=== PATIENT | female | born 1990 | race African-American/Black ===

== ENCOUNTER 2016-11-27 13:05 | Emergency (ER) | payer OTHER ==
[~2016-11-27] VITALS: Ht 170.2 cm; Wt 95.0 kg
[~2016-11-27 13:05] MED LIST: OXYC-360 PO; Z.0.NO CURRENT MEDS
[2016-11-27 13:07] VITALS: BP 162/87; PULSE 90; RESP 20; TEMP 98.2; O2SAT 100
[2016-11-27 14:31] LABS: AUTOMATED NEUTROPHIL # 2.6 TH/MM3 (1.8-7.7); BASOPHIL % 0.4 % (0.0-2.0); EOSINOPHIL # 0.1 TH/MM3 (0-0.4); EOSINOPHIL % 1.1 % (0.0-4.0); HEMATOCRIT 37.7 % (35.0-46.0); LYMPH % 32.7 % (9.0-44.0); LYMPHOCYTE # 1.5 TH/MM3 (1.0-4.8); MEAN CELL VOLUME 72.1 FL (80.0-100.0); MEAN CORPUSCULAR HEMOGLOBIN 22.6 PG (27.0-34.0); MEAN CORPUSCULAR HGB CONC 31.3 % (32.0-36.0); MONO % 10.2 % (0.0-8.0); NEUT % 55.6 % (16.0-70.0); PLATELET COUNT 304 TH/MM3 (150-450); RED BLOOD COUNT 5.23 MIL/MM3 (4.00-5.30); RED CELL DISTRIBUTION WIDTH 14.2 % (11.6-17.2); WHITE BLOOD COUNT 4.7 TH/MM3 (4.0-11.0)
--- NOTE | 2016-11-27 14:34 | PD ---
HPI Chief Complaint: Psychiatric Symptoms Time Seen by Provider: 14:30 Travel History International Travel<30 days: No Contact w/Intl Traveler<30days: No Traveled to known affect area: No History of Present Illness HPI 26-year-old female that presents to the ED for evaluation of psych. Patient has a chronic history of depression and anxiety. Per patient she used to be on Prozac but she lost her insurance and she has not been able to fill it for about 6 months. Per patient she's been having more stress in her life secondary to a new job and she's been feeling more depressed because of this as well as having a pilonidal cyst that needs to be surgically removed that comes and goes and causes her discomfort. Per patient she doesn't have any problems with it at this time but she is concerned about her depression and wants help with this. Patient states that sometimes she wakes up and she doesn't care if she dies. Per patient she has no history of drug abuse or alcohol abuse. Patient is very anxious and does cry when she tells he was happening. Her symptoms are moderate. She denies any actual plan. She is here voluntarily to psychiatric help. No allergies to medication. No pain at this time. No other medical problems. She takes no medications at this time. Symptoms have been worsening for the past couple months. PFSH Past Medical History Asthma: Yes Diminished Hearing: No Respiratory: Yes (ALLERGY) ?: Not LMP: IUD in place Social History Alcohol Use: No Tobacco Use: No Substance Use: No Allergies-Medications (Allergen,Severity, Reaction): Coded Allergies: No Known Allergies (Verified , 11/27/16) Reported Meds & Prescriptions Reported Meds & Active Scripts Active Percocet (Oxycodone/Acetaminophen) 5 Mg/325 Mg Tab 1-2 Tab PO Q4HPRN FOR PAIN Reported No Current Meds (Miscellaneous Medication) Misc Review of Systems General / Constitutional: No: Fever, Chills, Weight Gain, Weight Loss, Other Eyes: No: Diploplia, Blurred Vision, Photophobia, Drainage, Redness, Foreign Body Sensation, Pain, Tearing, Blind Spots, Visual changes, Blindness, Other HENT: No: Headaches, Vertigo, Lightheadedness, Sore Throat, Rhinitis, Rhinorrhea, Congestion, Nosebleed, Neck Stiffness, Neck Pain, Masses, Gingival Bleeding, Dental Difficulties, Ear Discharge, Earache, Other Cardiovascular: No: Chest Pain or Discomfort, Palpitations, Irregular Rhythm, Tachycardia, Diaphoresis, Syncope, Dyspnea on exertion, Varicosities, Edema, Cyanosis, Varicosities, Phlebitis, Claudication, Other Respiratory: No: Cough, Shortness of Breath, Wheezing, Sneezing, Orthopnea, Hemoptysis, Stridor, Night Sweats, Pleuritic Pain, Other Gastrointestinal: No: Nausea, Vomiting, Diarrhea, Abdominal Pain, Hematemesis, Hematochezia, Constipation, Changes in Bowel Habits, Indigestion, Dysphagia, Loss of Appetite, Other Genitourinary: No: Urgency, Frequency, Dysuria, Nocturia, Hematuria, Decreased Urinary Output, Oliguria, Hesitancy, Dribbling, Incontinence, Pelvic Pain, Flank Pain, Dyspareunia, Discharge, Dysmenorrhea, Menorrhagia, Metorrhagia, Vaginal Bleeding, Other Musculoskeletal: No: Myalgias, Arthralgias, Limited ROM, Weakness, Cramping, Edema, Pain, Atrophy, Other Skin: No Rash, No Itching, No Dryness, No Lumps, No Hives, No Change in Pigmentation, No Change in nails, No Alopecia, No Lesions, No Breast Lumps, No Breast Tenderness, No Breast Swelling, No Other Neurologic: No: Weakness, Dizziness, Syncope, Focal Abnormalities, Coordination Problem, Tremor, Ataxia, Headache, Change in Mentation, Slurred Speech, Paresthesia, Incontinence, Seizures, Sensory Disturbance, Other Psychiatric: Positive: Anxiety, Depression, Suicidal Ideations, No: Disorder of Thought, Mood Disorder, Substance Abuse, Homicidal Ideation, Other Endocrine: No: Heat Intolerance, Cold Intolerance, Polyuria, Polydipsia, Other Hematologic/Lymphatic: No: Easy Bruising, Lymph Node Enlargement, Other Physical Exam Narrative GENERAL: SKIN: Warm and dry. HEAD: Atraumatic. Normocephalic. EYES: Pupils equal and round. No scleral icterus. No injection or drainage. ENT: No nasal bleeding or discharge. Mucous membranes pink and moist. Tongue is midline. No uvula deviation. NECK: Trachea midline. No JVD. CARDIOVASCULAR: Regular rate and rhythm. No murmurs, S3, S4. RESPIRATORY: No accessory muscle use. Clear to auscultation. Breath sounds equal bilaterally. GASTROINTESTINAL: Abdomen soft, non-tender, nondistended. Hepatic and splenic margins not palpable. MUSCULOSKELETAL: Extremities without clubbing, cyanosis, or edema. No obvious deformities. Full range of motion of the upper and lower extremities bilaterally. 2+ pulses bilaterally. Neurovascular intact. NEUROLOGICAL: Awake and alert. No obvious cranial nerve deficits. Motor grossly within normal limits. Five out of 5 muscle strength in the arms and legs. Normal speech. PSYCHIATRIC: Anxious and depressed mood and affect; insight and judgment normal. Data Data Last Documented VS Vital Signs Date Time Temp Pulse Resp B/P Pulse Ox O2 Delivery O2 Flow Rate FiO2 11/27/16 13:07 98.2 90 20 162/87 100 Room Air Orders Diet Regular Basic (11/27/16 Lunch) Diet Regular Basic (11/27/16 Dinner) Complete Blood Count With Diff (11/27/16 13:57) Comprehensive Metabolic Panel (11/27/16 13:57) Ed Urine Pregnancytest Poc (11/27/16 13:57) Psych Screen (11/27/16 13:57) Drug Screen, Random Urine (11/27/16 13:57) Alcohol (Ethanol) (11/27/16 13:57) Salicylates (Aspirin) (11/27/16 13:57) Tylenol (Acetaminophen) (11/27/16 13:57) Labs Laboratory Tests Test 11/27/16 11/27/16 14:13 14:15 White Blood Count 4.7 TH/MM3 Red Blood Count 5.23 MIL/MM3 Hemoglobin 11.8 GM/DL Hematocrit 37.7 % Mean Corpuscular Volume 72.1 FL Mean Corpuscular Hemoglobin 22.6 PG Mean Corpuscular Hemoglobin 31.3 % Concent Red Cell Distribution Width 14.2 % Platelet Count 304 TH/MM3 Mean Platelet Volume 8.8 FL Neutrophils (%) (Auto) 55.6 % Lymphocytes (%) (Auto) 32.7 % Monocytes (%) (Auto) 10.2 % Eosinophils (%) (Auto) 1.1 % Basophils (%) (Auto) 0.4 % Neutrophils # (Auto) 2.6 TH/MM3 Lymphocytes # (Auto) 1.5 TH/MM3 Monocytes # (Auto) 0.5 TH/MM3 Eosinophils # (Auto) 0.1 TH/MM3 Basophils # (Auto) 0.0 TH/MM3 CBC Comment AUTO DIFF Sodium Level 142 MEQ/L Potassium Level 3.2 MEQ/L Chloride Level 105 MEQ/L Carbon Dioxide Level 25.9 MEQ/L Anion Gap 11 MEQ/L Blood Urea Nitrogen 8 MG/DL Creatinine 0.77 MG/DL Estimat Glomerular Filtration 109 ML/MIN Rate Random Glucose 88 MG/DL Calcium Level 8.3 MG/DL Total Bilirubin 0.3 MG/DL Aspartate Amino Transf 17 U/L (AST/SGOT) Alanine Aminotransferase 23 U/L (ALT/SGPT) Alkaline Phosphatase 83 U/L Total Protein 7.5 GM/DL Albumin 3.6 GM/DL Salicylates Level 2.2 MG/DL Ethyl Alcohol Level LESS THAN 3 MG/DL Urine Opiates Screen NEG Urine Barbiturates Screen NEG Urine Amphetamines Screen NEG Urine Benzodiazepines Screen NEG Urine Cocaine Screen NEG Urine Cannabinoids Screen POS MDM Medical Decision Making Medical Screen Exam Complete: Yes Emergency Medical Condition: Yes Medical Record Reviewed: Yes Interpretation(s) CBC & BMP Diagram 11/27/16 14:13 tox negative Differential Diagnosis Depression versus suicidal ideation versus anxiety versus adjustment disorder versus mood disorder versus bipolar disorder versus schizophrenia versus paranoid disorder versus psychosis versus substance abuse versus alcohol abuse versus alcohol induced psychosis versus homicidality addition versus cutting versus personality disorder Narrative Course 26-year-old female that presents to the ED for evaluation of psych. Patient was properly examined and was found to have signs and symptoms consistent with psychiatric illness. Patient voices no complaints at this time. She does have a history of a chronic bilateral cysts but no problems at this time with it. Labs will be drawn. Patient was medically clear. Okay to be seen by psych. Mental health screening was discussed with the patient. Diagnosis Primary Impression: Depression Qualified Code: F33.1 - Moderate episode of recurrent major depressive disorder Adonay Crooks Nov 27, 2016 14:34
[2016-11-27 14:36] LABS: HEMO FLAGS AUTO DIFF
[2016-11-27 14:40] VITALS: BP 135/68; PULSE 84; RESP 16; TEMP 99.1; O2SAT 100
[2016-11-27 14:41] LABS: AMPHETAMINE, URINE NEG (NEG); BARBITURATES, URINE NEG (NEG); COCAINE, URINE NEG (NEG)
[2016-11-27 14:51] LABS: ANION GAP 11 MEQ/L (5-15)
[2016-11-27 14:54] LABS: ALKALINE PHOSPHATASE 83 U/L (45-117); ALT (GPT) 23 U/L (10-53); AST (GOT) 17 U/L (15-37); BICARBONATE 25.9 MEQ/L (21.0-32.0); BLOOD UREA NITROGEN 8 MG/DL (7-18); CHLORIDE 105 MEQ/L (98-107); GLOMERULAR FILTRATION RATE 109 ML/MIN (>89); POTASSIUM 3.2 MEQ/L (3.5-5.1); SODIUM (NA) 142 MEQ/L (136-145); TOTAL BILIRUBIN ADULT 0.3 MG/DL (0.2-1.0)
[2016-11-27 14:59] LABS: ACETAMINOPHEN LESS THAN 2.0 MCG/ML (10.0-30.0)
[2016-11-27 15:19] LABS: PLATELET ESTIMATE SMEAR NORMAL (NORMAL); PLATELET MORPHOLOGY NORMAL (NORMAL); SCAN/DIFF AUTO DIFF CONFIRMED
[2016-11-27] MEDS ORDERED: hydrOXYzine PAMOATE 25 MG CAP PO ONE (17:15)
--- NOTE | 2016-11-27 17:36 | PD ---
History of Present Illness Chief Complaint: Psychiatric Symptoms Time Seen by Provider: 16:55 Travel History International Travel<30 Days: No Contact w/Intl Traveler<30days: No Known affected area: No Legal Status Legal Status: Voluntary History of Present Illness: History of Present Illness HPI 26-year-old, single, AA female with reported history of generalized anxiety disorder that presents to the ED on a voluntary basis for evaluation of psych. She reports that last night she went to bed feeling anxious and upon awakening began to experience symptoms of a panic attack including palpitations , shortness of breath as well as excessive worry. She reports that her symptoms at times prevent her from doing things she wants to do. States that she has been feeling increasingly anxious over the past few months with increase ion last week. Recent stressors include starting a new job 4 weeks ago. She states that she has been treated for anxiety in the past and was prescribed Prozac which she believes helped her with her symptoms for several months but she stopped the medication due to loosing her health insurance. EMR reviewed and patient has not had any previous contact with [facility] [place] [place] psychiatric department. Positive toxicology for cannabinoids which she has admitted to infrequent use. Patient is seen in J pod. Alert and oriented female that appears stated age. Maintaining hygiene and dressed in [facility]. She is engaging with appropriate eye contact. Speech is logical, goal directed and normal rate and tone. There is no pressured speech. Her thoughts are clear and organized. Denies any hallucinations, delusions or paranoia and she does not appear internally preoccupied. Mood is anxious. No suicidal or homicidal ideation, intent or plan and she talks about wanting to feel better. Concentration and attention are WNL. PFSH Past Medical History Medical History: Denies Significant Hx Asthma: Yes Anxiety: Yes Diminished Hearing: No Psychiatric: Yes (Generalized anxiety disorder) Respiratory: Yes (ALLERGY) Tetanus Vaccination: Unknown Influenza Vaccination: No ?: Unknown LMP: 10/17/16 Menopausal: No : 0 Past Surgical History Surgical History: No Previous Surgery Psychiatric History Psychiatric History Hx Psychiatric Treatment: Generalized Anxiety Disorder. Has been tretaed w Prozac History of Inpatient Treatment: No Guns or firearms in home: No Social History Single female. Lives with her sister. has a boyfriend. 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 Hx Alcohol Use: No Hx Tobacco Use: No Hx Substance Use: Yes (marijuana) Substance Use Type: Marijuana Hx of Substance Use Treatment: No Family Psychiatric History Father with depression. Sister with anxiety Allergies-Medications (Allergen,Severity, Reaction): Coded Allergies: No Known Allergies (Verified , 11/27/16) Reported Meds & Prescriptions Reported Meds & Active Scripts Active Percocet (Oxycodone/Acetaminophen) 5 Mg/325 Mg Tab 1-2 Tab PO Q4HPRN FOR PAIN Reported No Current Meds (Miscellaneous Medication) Misc Review of Systems Except as stated in HPI: all other systems reviewed are Neg Psychiatric: COMPLAINS OF: Anxiety Exam Alert: Yes [place]: Person (ox4) Mood: Anxious Affect: Other (congruent to mood) Eye Contact: Normal Memory Intact: Comment (No gross impairment) Hallucinations: Other (negative) Delusions: No Suicidal: Ideation (ddenies) Homicidal: Ideation (denies) Insight/Judgement Fair. Not impaired MDM Medical Decision Making Medical Record Reviewed: Yes Assessment/Plan 26 year old female with history of anxiety who presents to ed on a voluntary basis due to increase in level of anxiety with panic attacks. She has not had medication due to having lost her insurance and is wanting to be put back on some medication for current symptoms. I have provided psychoeducation. Will medicate with Vistaril low dose . Will monitor for results and if helpful she can be discharged with a small rx. . Will recommend [facility] as outpatient treatment.Does not meet criteria for inpatient psychiatric treatment. Orders Diet Regular Basic (11/27/16 Lunch) Diet Regular Basic (11/27/16 Dinner) Complete Blood Count With Diff (11/27/16 13:57) Comprehensive Metabolic Panel (11/27/16 13:57) Ed Urine Pregnancytest Poc (11/27/16 13:57) Psych Screen (11/27/16 13:57) Drug Screen, Random Urine (11/27/16 13:57) Alcohol (Ethanol) (11/27/16 13:57) Salicylates (Aspirin) (11/27/16 13:57) Tylenol (Acetaminophen) (11/27/16 13:57) Hydroxyzine Pamoate (Vistaril) (11/27/16 17:15) Results Vital Signs Date Time Temp Pulse Resp B/P Pulse Ox O2 Delivery O2 Flow Rate FiO2 11/27/16 14:40 99.1 84 16 135/68 100 Room Air 11/27/16 13:07 98.2 90 20 162/87 100 Room Air Laboratory Tests Test 11/27/16 11/27/16 14:13 14:15 White Blood Count 4.7 Red Blood Count 5.23 Hemoglobin 11.8 Hematocrit 37.7 Mean Corpuscular Volume 72.1 Mean Corpuscular Hemoglobin 22.6 Mean Corpuscular Hemoglobin 31.3 Concent Red Cell Distribution Width 14.2 Platelet Count 304 Mean Platelet Volume 8.8 Neutrophils (%) (Auto) 55.6 Lymphocytes (%) (Auto) 32.7 Monocytes (%) (Auto) 10.2 Eosinophils (%) (Auto) 1.1 Basophils (%) (Auto) 0.4 Neutrophils # (Auto) 2.6 Lymphocytes # (Auto) 1.5 Monocytes # (Auto) 0.5 Eosinophils # (Auto) 0.1 Basophils # (Auto) 0.0 CBC Comment AUTO DIFF Differential Comment AUTO DIFF CONFIRMED Platelet Estimate NORMAL Platelet Morphology Comment NORMAL Red Cell Morphology Comment NORMAL Sodium Level 142 Potassium Level 3.2 Chloride Level 105 Carbon Dioxide Level 25.9 Anion Gap 11 Blood Urea Nitrogen 8 Creatinine 0.77 Estimat Glomerular Filtration 109 Rate Random Glucose 88 Calcium Level 8.3 Total Bilirubin 0.3 Aspartate Amino Transf 17 (AST/SGOT) Alanine Aminotransferase 23 (ALT/SGPT) Alkaline Phosphatase 83 Total Protein 7.5 Albumin 3.6 Salicylates Level 2.2 Acetaminophen Level LESS THAN 2.0 Ethyl Alcohol Level LESS THAN 3 Urine Opiates Screen NEG Urine Barbiturates Screen NEG Urine Amphetamines Screen NEG Urine Benzodiazepines Screen NEG Urine Cocaine Screen NEG Urine Cannabinoids Screen POS Diagnosis Primary Impression: Anxiety Psychiatrically Cleared: Yes Med/ Other Pt Specific Info: Prescription(s) given Disposition: 01 DISCHARGE HOME Condition: Stable BarrettTashia Nov 27, 2016 17:36
[2016-11-27] MEDS ORDERED: VIST25CA PO (18:16)
[2016-11-27 18:30] VITALS: BP 141/74
== END 2016-11-27 19:01 | disposition home or self-care (01) ==
LOC: NEPJ 13:05
DX: F33.1 Major depressive disorder, recurrent, moderate (principal); F41.9 Anxiety disorder, unspecified; Z86.59 Personal history of other mental and behavioral disorders; Z87.09 Personal history of other diseases of the respiratory system
CPT/HCPCS: 80053; 80307; 80320; 84703; 85025; 99283; Q0177; 80329; G0480

== ENCOUNTER 2017-09-16 09:52 | Emergency (ER) | payer SELFPAY ==
[~2017-09-16 09:52] MED LIST changes: +VIST25CA PO
[2017-09-16 09:57] VITALS: BP 139/89; PULSE 99; RESP 18; TEMP 98.8; O2SAT 99
[2017-09-16] MEDS ORDERED: PROZ20CA11 PO (10:10)
--- NOTE | 2017-09-16 10:22 | PD ---
HPI Chief Complaint: Skin Problem Time Seen by Provider: 10:12 Travel History International Travel<30 days: No Contact w/Intl Traveler<30days: No Traveled to known affect area: No History of Present Illness HPI 26-year-old female presents to the department complaining of recurrent pilonidal cyst. Patient states her last cyst was 1 year ago and she is unable to control this with saline soaks and heating pads. Patient states that she doesn't have insurance and is unable to afford a general surgeon. States she has had these since she was 18 years old and has required multiple surgeries for excision. Patient denies fever or chills. Denies bowel or bladder problems. Patient has no other complaints today. Patient has a history of depression and takes Prozac. PFSH Past Medical History Asthma: Yes Anxiety: Yes Diminished Hearing: No Psychiatric: Yes (Generalized anxiety disorder) Respiratory: Yes (ALLERGY) Tetanus Vaccination: > 5 Years Influenza Vaccination: No ?: Not Menopausal: No : 0 Social History Alcohol Use: No Tobacco Use: No Substance Use: Yes (marijuana) Allergies-Medications (Allergen,Severity, Reaction): Coded Allergies: No Known Allergies (Verified Adverse Reaction, Unknown, 09/16/17) Reported Meds & Prescriptions Reported Meds & Active Scripts Active Bactrim DS (Sulfamethoxazole-Trimethoprim) 800-160 Mg Tab 1 Tab PO BID Reported Prozac (Fluoxetine HCl) 20 Mg Cap 20 Mg PO DAILY Review of Systems Except as stated in HPI: all other systems reviewed are Neg Physical Exam Narrative GENERAL: Well-nourished, well-developed patient. SKIN: Focused skin assessment warm/dry. Pilonidal area with 3 cm x 0.5 cm area of induration with slight fluctuance without erythema or extension of the abscess. No drainage. No evidence of lymphangitic Spread. No areas of erythema. HEAD: Normocephalic. Atraumatic. EYES: No scleral icterus. No injection or drainage. NECK: Supple, trachea midline. No JVD or lymphadenopathy. CARDIOVASCULAR: Regular rate and rhythm without murmurs, gallops, or rubs. RESPIRATORY: Breath sounds equal bilaterally. No accessory muscle use. GASTROINTESTINAL: Abdomen soft, non-tender, nondistended. MUSCULOSKELETAL: No cyanosis, or edema. BACK: Nontender without obvious deformity. No CVA tenderness. Data Data Last Documented VS Vital Signs Date Time Temp Pulse Resp B/P (MAP) Pulse Ox O2 Delivery O2 Flow Rate FiO2 09/16/17 11:03 97.8 77 16 122/83 (96) 99 Orders Orders Acetamin-Hydrocod 325-5 Mg (Universal 5-325 (09/16/17 10:30) Lidocaine 1% Inj (50 Ml) (Xylocaine 1% I (09/16/17 10:30) Ed Discharge Order (09/16/17 10:55) [facility] Medical Decision Making Medical Screen Exam Complete: Yes Emergency Medical Condition: Yes Differential Diagnosis Gluteal abscess, pilonidal cyst, cellulitis Narrative Course 26-year-old female presents to the department complaining of recurrent pilonidal cyst. Patient states her last cyst was 1 year ago and she is unable to control this with saline soaks and heating pads. Patient states that she doesn't have insurance and is unable to afford a general surgeon. States she has had these since she was 18 years old and has required multiple surgeries for excision. Patient denies fever or chills. Denies bowel or bladder problems. Patient has no other complaints today. Patient has a history of depression and takes Prozac. Vital signs stable Physical exam consistent with a recurrent pilonidal cyst. Scar is present from apparent previous removal. I&D performed with patient consent. Minimal fluid expressed. Provided packing to encourage drainage. Patient given hydrocodone for pain relief in the emergency department. Advised she may take [id number] Tylenol or Motrin per package instructions for her pain. Patient given antibiotic rx. Advised on wound care. Patient is familiar with these cysts and understands it is imperative she keeps area clean and dry. Advised follow-up primary care physician within 2-3 days. Return to the emergency for worsening or persistent symptoms. Procedures Procedure Narrative INCISION AND DRAINAGE OF ABSCESS: The area was prepped and was sterilely draped. A subcutaneous wheal of 1 % Xylocaine without epinephrine with a total number to mL was used to anesthetize the area properly. A number 11 scalpel was used to make a 5-10 mm incision across the area of the abscess. The abscess was drained, complex loculations were broken down, and irrigated with normal saline. Cultures were obtained. Quarter inch iodoform packing was placed in the wound. Sterile dressing applied. Diagnosis Primary Impression: PILONIDAL CYST W ABSCESS Referrals: [facility] Additional Instructions: Follow up with your primary care physician within 2-3 days. If your symptoms persist or worsen, return to the emergency department. Change your dressings daily. Your wound will continue to weep. Take all medications as prescribed. Keep area clean and dry. Scripts Sulfamethoxazole-Trimethoprim (Bactrim DS) 800-160 Mg Tab 1 TAB PO BID for Infection, #14 TAB 0 Refills Prov: Angelo Merino MD 09/16/17 Disposition: 01 DISCHARGE HOME Condition: Stable Sahara Escamilla Sep 16, 2017 10:22
[2017-09-16] MEDS ORDERED: ACETAMINOPHEN/HYDROcodone 325 MG/5 MG TAB PO ONE (10:30)
[2017-09-16] MEDS ORDERED: LIDOCAINE HCL 1% 50 ML VIAL INFIL ONE (10:30)
[2017-09-16] MEDS ORDERED: BACT800T5 PO (10:51)
[2017-09-16 11:03] VITALS: BP 122/83; TEMP 97.8
== END 2017-09-16 11:04 | disposition home or self-care (01) ==
LOC: NEPD 09:52
DX: L05.01 Pilonidal cyst with abscess (principal); J45.909 Unspecified asthma, uncomplicated; F41.9 Anxiety disorder, unspecified; F32.9 Major depressive disorder, single episode, unspecified
CPT/HCPCS: 10080